=== PATIENT | female | born 1975 | race American Indian/Alaskan Native ===

== ENCOUNTER 2017-10-22 15:53 | Emergency (ER) | payer MEDICAID ==
[2017-10-22 16:06] VITALS: BP 140/70
[2017-10-22] MEDS ORDERED: DELTASONE PO ONE (19:48)
[2017-10-22] MEDS ORDERED: TORADOL IM ONE (19:48)
--- NOTE | 2017-10-22 20:25 | Emergency Department Report ---
ED Back Pain/Injury HPI - General Chief Complaint: Back Pain/Injury Stated Complaint: LOWER BACK PAIN Time Seen by Provider: 10/22/17 18:56 Source: patient Limitations: No Limitations - History of Present Illness Initial Comments: This is a 42-year-old female nontoxic, well nourished in appearance, no acute signs of distress presents to the ED with c/o of acute on chronic lower back pain. Patient stated that the past 2 days she was moving and developed this pain. Patient states has history of sciatica nerve pain which is similar symptoms as today. Patient states that pain radiates through to his left lower extremity. Patient denies any trauma. Denies any bladder or bowel instability. Patient denies any urinary symptoms. Denies any fever, chills, nausea, vomiting, headache, stiff neck, chest pain or shortness of breath. Patient denies any numbness or tingling. Denies any allergies. Denies significant past medical history. MD Complaint: back pain -: days(s) (2) Similar Symptoms Previously: Yes Place: home Radiation: left leg Severity: mild Severity scale (0 -10): 8 Quality: aching Improves With: immobilization, supine, sitting upright Worsens With: movement, walking Context: while lifting, bending Associated Symptoms: denies other symptoms. denies: confusion, weakness, chest pain, numbness, difficulty walking, cough, difficulty urinating, diaphoresis, incontinence, fever/chills, constipation, headaches, abdominal pain, loss of appetite, malaise, nausea/vomiting, rash, seizure, shortness of breath, syncope - Related Data Home Medications Medication Instructions Recorded Confirmed Last Taken Phenazopyridine [Pyridium] 200 mg PO TID 05/20/15 05/20/15 05/20/15 00:00 Sulfamethoxazole/Trimethoprim 1 each PO BID 05/20/15 05/20/15 05/20/15 00:00 [Bactrim DS TAB] Previous Rx's Medication Instructions Recorded Last Taken Type Amoxicillin [Trimox CAP] 500 mg PO Q8H #21 capsule 03/28/16 Unknown Rx Ibuprofen [Motrin] 600 mg PO Q8H PRN #30 tablet 03/28/16 Unknown Rx Neomy/Polymyx B/Hc (Otic) Soln 4 drops OTIC TID #1 bottle 03/28/16 Unknown Rx [Cortisporin (Otic) Soln] Cyclobenzaprine [Flexeril] 10 mg PO QHS PRN #10 tablet 10/22/17 Unknown Rx Ibuprofen [Motrin] 600 mg PO Q8H PRN #30 tablet 10/22/17 Unknown Rx Allergies Allergy/AdvReac Type Severity Reaction Status Date / Time No Known Allergies Allergy Verified 10/22/17 16:04 ED Review of Systems ROS: Stated complaint: LOWER BACK PAIN Other details as noted in HPI Constitutional: denies: chills, fever Eyes: denies: eye pain, eye discharge, vision change ENT: denies: ear pain, throat pain Respiratory: denies: cough, shortness of breath, wheezing Cardiovascular: denies: chest pain, palpitations Endocrine: no symptoms reported Gastrointestinal: denies: abdominal pain, nausea, diarrhea Genitourinary: denies: urgency, dysuria, discharge Musculoskeletal: back pain. denies: joint swelling, arthralgia Skin: denies: rash, lesions Neurological: denies: headache, weakness, paresthesias Psychiatric: denies: anxiety, depression Hematological/Lymphatic: denies: easy bleeding, easy bruising ED Past Medical Hx - Past Medical History Previous Medical History?: No - Surgical History Additional Surgical History: TUBAL LIGATION - Social History Smoking Status: Current Some Day Smoker Substance Use Type: None - Medications Home Medications: Home Medications Medication Instructions Recorded Confirmed Last Taken Type Phenazopyridine [Pyridium] 200 mg PO TID 05/20/15 05/20/15 05/20/15 00:00 History Sulfamethoxazole/Trimethoprim 1 each PO BID 05/20/15 05/20/15 05/20/15 00:00 History [Bactrim DS TAB] Amoxicillin [Trimox CAP] 500 mg PO Q8H #21 capsule 03/28/16 Unknown Rx Ibuprofen [Motrin] 600 mg PO Q8H PRN #30 tablet 03/28/16 Unknown Rx Neomy/Polymyx B/Hc (Otic) Soln 4 drops OTIC TID #1 bottle 03/28/16 Unknown Rx [Cortisporin (Otic) Soln] Cyclobenzaprine [Flexeril] 10 mg PO QHS PRN #10 tablet 10/22/17 Unknown Rx Ibuprofen [Motrin] 600 mg PO Q8H PRN #30 tablet 10/22/17 Unknown Rx ED Physical Exam - General Limitations: No Limitations General appearance: alert, in no apparent distress - Head Head exam: Present: atraumatic, normocephalic - Eye Eye exam: Present: normal appearance Pupils: Present: normal accommodation - ENT ENT exam: Present: normal exam, mucous membranes moist - Neck Neck exam: Present: normal inspection, full ROM. Absent: tenderness, meningismus, lymphadenopathy - Respiratory Respiratory exam: Present: normal lung sounds bilaterally. Absent: respiratory distress, wheezes, rales, rhonchi, stridor, chest wall tenderness, accessory muscle use, decreased breath sounds, prolonged expiratory - Cardiovascular Cardiovascular Exam: Present: regular rate, normal rhythm, normal heart sounds. Absent: bradycardia, tachycardia, irregular rhythm, systolic murmur, diastolic murmur, rubs, gallop - GI/Abdominal GI/Abdominal exam: Present: soft, normal bowel sounds. Absent: distended, tenderness, guarding, rebound, rigid, diminished bowel sounds - Rectal Rectal exam: Present: deferred - Extremities Exam Extremities exam: Present: normal inspection, full ROM, normal capillary refill. Absent: tenderness - Back Exam Back exam: Present: normal inspection, full ROM, paraspinal tenderness (lumbar paraspinal). Absent: tenderness, CVA tenderness (R), CVA tenderness (L), muscle spasm, vertebral tenderness, rash noted - Expanded Back Exam Expanded Back exam: Absent: saddle anesthesia Back exam: Negative Straight Leg Raising: Left, Right - Neurological Exam Neurological exam: Present: alert, oriented X3, normal gait - Psychiatric Psychiatric exam: Present: normal affect, normal mood - Skin Skin exam: Present: warm, dry, intact, normal color. Absent: rash ED Course Vital Signs 10/22/17 16:04 Temperature 99.2 F Pulse Rate 74 Respiratory 18 Rate Blood Pressure 140/70 O2 Sat by Pulse 100 Oximetry - Reevaluation(s) Reevaluation #1: 10/22/17 20:23 Patient is speaking in full sentences with no signs of distress noted. ED Medical Decision Making - Medical Decision Making This is a 42-year-old female that presents with low back strain. Patient is stable was examined by me. There is no spinal tenderness. There is no cauda equina syndrome during examination. No bladder or bowel instability. Patient received Toradol 30 mg IM and prednisone in the ED which preceded his symptoms has resolved and subsided. Patient is discharged with muscle relaxant and Motrin. Patient was instructed not to operate any machinery while taking muscle relaxant as they cause her drowsiness. Patient was referred to Follow- up with a primary care doctor in 3-5 days or if symptoms worsen and continue return to emergency room as soon as possible. At time of discharge, the patient does not seem toxic or ill in appearance. No acute signs of distress noted. Patient agrees to discharge treatment plan of care. No further questions noted by the patient. This chart is dictated with using [employer] Dictation Program Critical care attestation.: If time is entered above; I have spent that time in minutes in the direct care of this critically ill patient, excluding procedure time. ED Disposition Clinical Impression: Low back strain Qualifiers: Encounter type: initial encounter Qualified Code(s): S39.012A - Strain of muscle, fascia and tendon of lower back, initial encounter Disposition: TO HOME OR SELFCARE Is pt being admited?: No Does the pt Need Aspirin: No Condition: Stable Instructions: Low Back Strain (ED), Cyclobenzaprine (By mouth), Ibuprofen (By mouth) Additional Instructions: Follow-up with your primary care doctor in 3-5 days or if symptoms worsen such as bladder or bowel stability, chest pain, short of breath, numbness or tingling sensation in extremities, headache, dizziness, visual changes, nausea vomiting, or abdominal pain, return back to emergency room as was possible. Take ibuprofen and Flexeril as prescribed. Do not operate heavy machinery while taking Flexeril due to sedation Prescriptions: Cyclobenzaprine [Flexeril] 10 mg PO QHS PRN #10 tablet PRN Reason: Muscle Spasm Ibuprofen [Motrin] 600 mg PO Q8H PRN #30 tablet PRN Reason: Pain Referrals: PRIMARY CARE, [Primary Care Provider] - 3-5 Days ALEXANDRO ESCOTO MD [Staff Physician] - 3-5 Days [facility] [place] [Outside] - 3-5 Days [facility] [Outside] - 3-5 Days Forms: Work/School Release Form(ED)
== END 2017-10-22 20:30 | disposition home or self-care (01) ==
LOC: ED 15:53
DX: S39.012A Strain of muscle, fascia and tendon of lower back, initial encounter (principal); F17.200 Nicotine dependence, unspecified, uncomplicated; Z98.51 Tubal ligation status; Z79.899 Other long term (current) drug therapy; X50.1XXA Overexertion from prolonged static or awkward postures, initial encounter; Y93.89 Activity, other specified; Y99.8 Other external cause status; Y92.019 Unspecified place in single-family (private) house as the place of occurrence of the external cause
CPT/HCPCS: 96372; 99282; J1885; J7512

== ENCOUNTER 2018-10-08 18:10 | Emergency (ER) | payer MEDICAID ==
[2018-10-08 18:30] VITALS: BP 115/71
--- NOTE | 2018-10-08 18:33 | Emergency Department Report ---
ED Back Pain/Injury HPI - General Chief Complaint: Back Pain/Injury Stated Complaint: BACK/LEG PAIN Time Seen by Provider: 10/08/18 18:28 Source: patient Limitations: No Limitations - History of Present Illness Initial Comments: Pt is a 42 yo female who presents to the ED with c/o chronic lower back pain for a year. she states she has pain radiating down her legs. she states she works at a [employer] and gets stiff after sitting all day. pt denies any injury or fall. pt denies any paresthesias, numbness, or weakness, or bowel or bladder incontinence. denies any PMHx or allergies to medicaitons. - Related Data Home Medications Medication Instructions Recorded Confirmed Last Taken Phenazopyridine [Pyridium] 200 mg PO TID 05/20/15 05/20/15 05/20/15 00:00 Sulfamethoxazole/Trimethoprim 1 each PO BID 05/20/15 05/20/15 05/20/15 00:00 [Bactrim DS TAB] Previous Rx's Medication Instructions Recorded Last Taken Type Amoxicillin [Trimox CAP] 500 mg PO Q8H #21 capsule 03/28/16 Unknown Rx Ibuprofen [Motrin] 600 mg PO Q8H PRN #30 tablet 03/28/16 Unknown Rx Neomy/Polymyx B/Hc (Otic) Soln 4 drops OTIC TID #1 bottle 03/28/16 Unknown Rx [Cortisporin (Otic) Soln] Cyclobenzaprine [Flexeril] 10 mg PO QHS PRN #10 tablet 10/22/17 Unknown Rx Ibuprofen [Motrin] 600 mg PO Q8H PRN #30 tablet 10/22/17 Unknown Rx Cyclobenzaprine [Flexeril] 10 mg PO QHS PRN #12 tablet 10/08/18 Unknown Rx Naproxen [Naprosyn TAB] 375 mg PO BID PRN #20 tablet 10/08/18 Unknown Rx Allergies Allergy/AdvReac Type Severity Reaction Status Date / Time No Known Allergies Allergy Verified 10/08/18 18:17 ED Review of Systems ROS: Stated complaint: BACK/LEG PAIN Other details as noted in HPI Comment: All other systems reviewed and negative ED Past Medical Hx - Past Medical History Previous Medical History?: No - Surgical History Additional Surgical History: TUBAL LIGATION - Social History Smoking Status: Current Some Day Smoker Substance Use Type: None - Medications Home Medications: Home Medications Medication Instructions Recorded Confirmed Last Taken Type Phenazopyridine [Pyridium] 200 mg PO TID 05/20/15 05/20/15 05/20/15 00:00 History Sulfamethoxazole/Trimethoprim 1 each PO BID 05/20/15 05/20/15 05/20/15 00:00 History [Bactrim DS TAB] Amoxicillin [Trimox CAP] 500 mg PO Q8H #21 capsule 03/28/16 Unknown Rx Ibuprofen [Motrin] 600 mg PO Q8H PRN #30 tablet 03/28/16 Unknown Rx Neomy/Polymyx B/Hc (Otic) Soln 4 drops OTIC TID #1 bottle 03/28/16 Unknown Rx [Cortisporin (Otic) Soln] Cyclobenzaprine [Flexeril] 10 mg PO QHS PRN #10 tablet 10/22/17 Unknown Rx Ibuprofen [Motrin] 600 mg PO Q8H PRN #30 tablet 10/22/17 Unknown Rx Cyclobenzaprine [Flexeril] 10 mg PO QHS PRN #12 tablet 10/08/18 Unknown Rx Naproxen [Naprosyn TAB] 375 mg PO BID PRN #20 tablet 10/08/18 Unknown Rx ED Physical Exam - General Limitations: No Limitations General appearance: alert, in no apparent distress - Head Head exam: Present: atraumatic, normocephalic - Eye Eye exam: Present: normal appearance - ENT ENT exam: Present: mucous membranes moist - Neck Neck exam: Present: normal inspection, full ROM. Absent: tenderness - Respiratory Respiratory exam: Present: normal lung sounds bilaterally. Absent: respiratory distress, wheezes, rales, rhonchi, stridor, chest wall tenderness, accessory muscle use, decreased breath sounds, prolonged expiratory - Cardiovascular Cardiovascular Exam: Present: regular rate, normal rhythm, normal heart sounds - Back Exam Back exam: Present: normal inspection, full ROM, paraspinal tenderness (bilateral lumbar paraspinal muscular TTP, no midline C-spine, T-spine, or L- spine tenderness, no step offs, no deformities). Absent: vertebral tenderness - Neurological Exam Neurological exam: Present: alert, oriented X3, CN II-XII intact, normal gait. Absent: motor sensory deficit - Psychiatric Psychiatric exam: Present: normal affect, normal mood - Skin Skin exam: Present: warm, dry, intact ED Course Vital Signs 10/08/18 18:28 Temperature 98.7 F Pulse Rate 66 Respiratory 18 Rate Blood Pressure 115/71 O2 Sat by Pulse 100 Oximetry ED Medical Decision Making - Medical Decision Making Pt is a 42 yo female who presents to the ED with c/o chronic lower back pain for a year. she states she has pain radiating down her legs. she states she works at a [employer] and gets stiff after sitting all day. pt denies any injury or fall. pt denies any paresthesias, numbness, or weakness, or bowel or bladder incontinence. denies any PMHx or allergies to medicaitons. vitals are normal. on exam: bilateral lumbar paraspinal muscular TTP, no midline C-spine, T-spine, or L-spine tenderness, no step offs, no deformities, no focal neuro deficits. pt given prescription for anti-inflammatory and muscle relaxer. advised pt to please take medication as prescribed as needed. do not drive or operate heavy machinery while taking muscle relaxer. may use ice, heating pad, epsom salt bath. follow up with an orthopedic doctor in the next 2-3 days. return to the emergency room for any new or worsening symptoms. - Differential Diagnosis low back strain, arthritis, DDD, sciatica, herniated disc Critical care attestation.: If time is entered above; I have spent that time in minutes in the direct care of this critically ill patient, excluding procedure time. ED Disposition Clinical Impression: Low back pain Qualifiers: Chronicity: acute Back pain laterality: bilateral Sciatica presence: with sciatica Sciatica laterality: bilateral sciatica Qualified Code(s): M54.42 - Lumbago with sciatica, left side Disposition: -01 TO HOME OR SELFCARE Is pt being admited?: No Does the pt Need Aspirin: No Condition: Stable Instructions: Muscle Strain (ED), Sciatica (ED) Additional Instructions: please take medication as prescribed as needed. do not drive or operate heavy machinery while taking muscle relaxer. may use ice, heating pad, epsom salt bath. follow up with an orthopedic doctor in the next 2-3 days. return to the emergency room for any new or worsening symptoms. Prescriptions: Cyclobenzaprine [Flexeril] 10 mg PO QHS PRN #12 tablet PRN Reason: Muscle Spasm Naproxen [Naprosyn TAB] 375 mg PO BID PRN #20 tablet PRN Reason: pain Referrals: [facility] [Provider Group] - 2-3 Days VÍCTOR HOPKINS MD [Staff Physician] - 2-3 Days [facility] [Provider Group] - 2-3 Days Forms: Work/School Release Form(ED) Time of Disposition: 18:37 Print Language: BENGALI
== END 2018-10-08 18:55 | disposition home or self-care (01) ==
LOC: ED 18:10
DX: M54.5 Low back pain (principal); G89.29 Other chronic pain; F17.200 Nicotine dependence, unspecified, uncomplicated
CPT/HCPCS: 99282

== ENCOUNTER 2018-10-10 22:42 | Emergency (ER) | payer MEDICAID ==
[2018-10-10 23:41] LABS: Bacteria,Urine 3+ /HPF (Negative); Bilirubin,Urine NEG (Negative); Blood,Urine SM (Negative); Color,Urine Yellow (Yellow); Mucus,Urine FEW /HPF; Protein,Urine <15 mg/dL mg/dL (Negative)
--- NOTE | 2018-10-11 00:03 | Emergency Department Report ---
ED Female HPI - General Chief complaint: Urogenital-Female Stated complaint: PAINFUL URINATION Time Seen by Provider: 10/10/18 23:26 Source: patient Mode of arrival: Ambulatory Limitations: No Limitations - History of Present Illness Initial comments: Patient is a 42-year-old female who presents for urination with odor 2 months is no nausea no vomiting there as as of discharge white malodorous no fever chills MD Complaint: vaginal discharge, dysuria Onset/Timin -: month(s) Location: suprapubic Radiation: suprapubic Severity: moderate Quality: cramping Consistency: intermittent Improves with: none Worsens with: urination Are you Now?: No Last Menstrual Period: 08/18/18 (s/p tubla ligation) EDC: 05/25/19 Associated Symptoms: vaginal discharge, dysuria. denies: vaginal bleeding, abdominal pain, nausea/vomiting, fever/chills, hematuria, rash - Related Data Sexually active: Yes : 2 Para: 2 A: 0 Home Medications Medication Instructions Recorded Confirmed Last Taken Phenazopyridine [Pyridium] 200 mg PO TID 05/20/15 05/20/15 05/20/15 00:00 Sulfamethoxazole/Trimethoprim 1 each PO BID 05/20/15 05/20/15 05/20/15 00:00 [Bactrim DS TAB] Previous Rx's Medication Instructions Recorded Last Taken Type Amoxicillin [Trimox CAP] 500 mg PO Q8H #21 capsule 03/28/16 Unknown Rx Ibuprofen [Motrin] 600 mg PO Q8H PRN #30 tablet 03/28/16 Unknown Rx Neomy/Polymyx B/Hc (Otic) Soln 4 drops OTIC TID #1 bottle 03/28/16 Unknown Rx [Cortisporin (Otic) Soln] Cyclobenzaprine [Flexeril] 10 mg PO QHS PRN #10 tablet 10/22/17 Unknown Rx Ibuprofen [Motrin] 600 mg PO Q8H PRN #30 tablet 10/22/17 Unknown Rx Cyclobenzaprine [Flexeril] 10 mg PO QHS PRN #12 tablet 10/08/18 Unknown Rx Naproxen [Naprosyn TAB] 375 mg PO BID PRN #20 tablet 10/08/18 Unknown Rx metroNIDAZOLE [Flagyl] 500 mg PO BID 10 Days #20 tab 10/11/18 Unknown Rx Allergies Allergy/AdvReac Type Severity Reaction Status Date / Time No Known Allergies Allergy Verified 10/08/18 18:17 ED Review of Systems ROS: Stated complaint: PAINFUL URINATION Other details as noted in HPI Constitutional: denies: chills, fever Eyes: denies: eye pain, eye discharge, vision change ENT: denies: ear pain, throat pain Respiratory: denies: cough, shortness of breath, wheezing Cardiovascular: denies: chest pain, palpitations Endocrine: no symptoms reported Gastrointestinal: abdominal pain. denies: nausea, vomiting Genitourinary: urgency, dysuria, frequency, discharge. denies: hematuria, abnormal menses, dyspareunia Musculoskeletal: denies: back pain, joint swelling, arthralgia Skin: denies: rash, lesions Neurological: denies: headache, weakness, paresthesias Psychiatric: denies: anxiety, depression Hematological/Lymphatic: denies: easy bleeding, easy bruising ED Past Medical Hx - Past Medical History Previous Medical History?: No - Surgical History Past Surgical History?: Yes Additional Surgical History: TUBAL LIGATION - Social History Smoking Status: Current Every Day Smoker Substance Use Type: Alcohol - Medications Home Medications: Home Medications Medication Instructions Recorded Confirmed Last Taken Type Phenazopyridine [Pyridium] 200 mg PO TID 05/20/15 05/20/15 05/20/15 00:00 History Sulfamethoxazole/Trimethoprim 1 each PO BID 05/20/15 05/20/15 05/20/15 00:00 History [Bactrim DS TAB] Amoxicillin [Trimox CAP] 500 mg PO Q8H #21 capsule 03/28/16 Unknown Rx Ibuprofen [Motrin] 600 mg PO Q8H PRN #30 tablet 03/28/16 Unknown Rx Neomy/Polymyx B/Hc (Otic) Soln 4 drops OTIC TID #1 bottle 03/28/16 Unknown Rx [Cortisporin (Otic) Soln] Cyclobenzaprine [Flexeril] 10 mg PO QHS PRN #10 tablet 10/22/17 Unknown Rx Ibuprofen [Motrin] 600 mg PO Q8H PRN #30 tablet 10/22/17 Unknown Rx Cyclobenzaprine [Flexeril] 10 mg PO QHS PRN #12 tablet 10/08/18 Unknown Rx Naproxen [Naprosyn TAB] 375 mg PO BID PRN #20 tablet 10/08/18 Unknown Rx metroNIDAZOLE [Flagyl] 500 mg PO BID 10 Days #20 tab 10/11/18 Unknown Rx ED Physical Exam - General Limitations: No Limitations General appearance: alert, in no apparent distress - Head Head exam: Present: atraumatic, normocephalic - Eye Eye exam: Present: normal appearance, PERRL, EOMI Pupils: Present: normal accommodation - ENT ENT exam: Present: mucous membranes moist - Neck Neck exam: Present: normal inspection, full ROM. Absent: tenderness, l ymphadenopathy - Respiratory Respiratory exam: Present: normal lung sounds bilaterally. Absent: respiratory distress, wheezes, stridor, chest wall tenderness - Cardiovascular Cardiovascular Exam: Present: regular rate, normal rhythm, normal heart sounds. Absent: systolic murmur, diastolic murmur, rubs, gallop - GI/Abdominal GI/Abdominal exam: Present: soft, normal bowel sounds. Absent: distended, tenderness, bruit, hernia - Rectal Rectal exam: Present: deferred - External exam: Present: normal external exam Speculum exam: Present: erythema, vaginal discharge (white green malodorous ). Absent: cervical discharge, vaginal bleeding, foreign body, tissue, laceration Bi-manual exam: Absent: cervical motion tendernes - Extremities Exam Extremities exam: Present: normal inspection, full ROM, normal capillary refill. Absent: tenderness, pedal edema, joint swelling, calf tenderness - Back Exam Back exam: Present: normal inspection, full ROM. Absent: tenderness, CVA tenderness (R), CVA tenderness (L), muscle spasm, paraspinal tenderness, vertebral tenderness, rash noted - Neurological Exam Neurological exam: Present: alert, oriented X3, CN II-XII intact, normal gait - Psychiatric Psychiatric exam: Present: normal affect, normal mood - Skin Skin exam: Present: warm, dry, intact, normal color. Absent: rash ED Course Vital Signs 10/10/18 22:47 Temperature 99 F Pulse Rate 82 Respiratory 14 Rate Blood Pressure 110/62 O2 Sat by Pulse 100 Oximetry ED Medical Decision Making - Medical Decision Making plan tx'd for STI will dc with rx for flagyl, follow up with health department for HIV, HSV, and Syphlis screening pt verbalized agreement and understanding of same. Critical care attestation.: If time is entered above; I have spent that time in minutes in the direct care of this critically ill patient, excluding procedure time. ED Disposition Clinical Impression: STI (sexually transmitted infection) Disposition: TO HOME OR SELFCARE Is pt being admited?: No Does the pt Need Aspirin: No Condition: Stable Instructions: Sexually Transmitted Diseases in Adolescents (ED), Bacterial Vaginosis (ED) Prescriptions: metroNIDAZOLE [Flagyl] 500 mg PO BID 10 Days #20 tab Referrals: [facility] [Outside] - 3-5 Days Forms: Work/School Release Form(ED) Time of Disposition: :
[2018-10-11] MEDS ORDERED: XYLOCAINE 1% MPF 5 mL INFILTRATI ONE (00:55)
[2018-10-11] MEDS ORDERED: ROCEPHIN IM ONE (00:55)
[2018-10-11] MEDS ORDERED: ZITHROMAX PO ONE (00:55)
[2018-10-11 02:08] VITALS: BP 123/74
== END 2018-10-11 01:50 | disposition home or self-care (01) ==
LOC: ED 22:42
DX: A64 Unspecified sexually transmitted disease (principal); F17.200 Nicotine dependence, unspecified, uncomplicated; Z98.890 Other specified postprocedural states; Z98.51 Tubal ligation status; Z79.899 Other long term (current) drug therapy
CPT/HCPCS: 81001; 87210; 87591; 96372; 99284; J0696

== ENCOUNTER 2021-04-23 13:14 | Emergency (ER) | payer MEDICAID, OTHER ==
[2021-04-23] MEDS ORDERED: ACETAMINOPHEN 500 MG TAB PO ONE (14:57)
[2021-04-23 16:08] LABS: Bacteria,Urine 4+ /HPF (Negative); Bilirubin,Urine NEG (Negative); Blood,Urine MOD (Negative); Color,Urine Yellow (Yellow); Mucus,Urine FEW /HPF
[2021-04-23 16:11] LABS: HCG Qualitative,Urine Negative (Negative)
[2021-04-23] MEDS ORDERED: LIDOCAINE-MPF (1%) 10 MG/1 ML VIAL 5 ML INFILTRATI ONE (16:16)
[2021-04-23] MEDS ORDERED: KETOROLAC 10 MG TAB PO ONE (16:16)
[2021-04-23] MEDS ORDERED: levoFLOXacin 500 MG TAB PO ONE (16:20)
--- NOTE | 2021-04-23 16:36 | Emergency Department Report ---
ED Female HPI - General Chief complaint: Abdominal Pain Stated complaint: PAIN STOMACH/FEVER Time Seen by Provider: 04/23/21 14:43 Source: patient Mode of arrival: Ambulatory Limitations: No Limitations - History of Present Illness Initial comments: 45-year-old black female with no past medical history presents to the emergency department for evaluation of 3 to 4-day history of intermittent fever, urinary frequency, dysuria, and intermittent abdominal pain. She states that she does not have a thermometer at home but feels like she has been hot for the past several days. She also complains of headache. She states that she took Tylenol earlier this morning that improved her headache, abdominal pain, and fever but fever and headache have returned along with generalized body aches. She also states that she is concerned about possible . She denies vaginal discharge, nausea, vomiting, shortness of breath, and abdominal pain at this time. MD Complaint: dysuria -: Gradual, days(s) (3-4) Location: suprapubic Radiation: non-radiating Severity: severe Severity scale (0 -10): 8 Quality: aching Consistency: intermittent Worsens with: none Associated Symptoms: abdominal pain, fever/chills, headaches, dysuria. denies: vaginal discharge, vaginal bleeding, nausea/vomiting, loss of appetite, hematuria, rash, seizure, shortness of breath, syncope, weakness - Related Data Sexually active: Yes Home Medications Medication Instructions Recorded Confirmed Last Taken Phenazopyridine [Pyridium] 200 mg PO TID 05/20/15 05/20/15 05/20/15 00:00 Sulfamethoxazole/Trimethoprim 1 each PO BID 05/20/15 05/20/15 05/20/15 00:00 [Bactrim DS TAB] Previous Rx's Medication Instructions Recorded Last Taken Type Amoxicillin [Trimox CAP] 500 mg PO Q8H #21 capsule 03/28/16 Unknown Rx Ibuprofen [Motrin] 600 mg PO Q8H PRN #30 tablet 03/28/16 Unknown Rx Neomy/Polymyx B/Hc (Otic) Soln 4 drops OTIC TID #1 bottle 03/28/16 Unknown Rx [Cortisporin (Otic) Soln] Cyclobenzaprine [Flexeril] 10 mg PO QHS PRN #10 tablet 10/22/17 Unknown Rx Ibuprofen [Motrin] 600 mg PO Q8H PRN #30 tablet 10/22/17 Unknown Rx Cyclobenzaprine [Flexeril] 10 mg PO QHS PRN #12 tablet 10/08/18 Unknown Rx Naproxen [Naprosyn TAB] 375 mg PO BID PRN #20 tablet 10/08/18 Unknown Rx metroNIDAZOLE [Flagyl] 500 mg PO BID 10 Days #20 tab 10/11/18 Unknown Rx Ciprofloxacin HCl [Ciprofloxacin 500 mg PO BID #20 tab 04/23/21 Unknown Rx TAB] Ketorolac [Toradol] 10 mg PO Q6H PRN #12 tab 04/23/21 Unknown Rx Allergies Allergy/AdvReac Type Severity Reaction Status Date / Time No Known Allergies Allergy Verified 10/08/18 18:17 ED Review of Systems ROS: Stated complaint: PAIN STOMACH/FEVER Other details as noted in HPI Comment: All other systems reviewed and negative Constitutional: fever, malaise. denies: chills, diaphoresis, weakness Eyes: denies: eye pain ENT: denies: ear pain, throat pain Respiratory: denies: cough, shortness of breath Cardiovascular: denies: chest pain, palpitations, orthopnea Endocrine: no symptoms reported Gastrointestinal: abdominal pain. denies: nausea, vomiting, diarrhea, hematemesis, melena, hematochezia Genitourinary: dysuria, frequency. denies: urgency, hematuria, discharge, dyspareunia Musculoskeletal: denies: back pain Skin: denies: rash, lesions Neurological: headache. denies: weakness, numbness, paresthesias, abnormal gait Psychiatric: denies: anxiety Hematological/Lymphatic: denies: easy bleeding, easy bruising ED Past Medical Hx - Surgical History Additional Surgical History: TUBAL LIGATION - Social History Smoking Status: Current Every Day Smoker Substance Use Type: Alcohol - Medications Home Medications: Home Medications Medication Instructions Recorded Confirmed Last Taken Type Phenazopyridine [Pyridium] 200 mg PO TID 05/20/15 05/20/15 05/20/15 00:00 History Sulfamethoxazole/Trimethoprim 1 each PO BID 05/20/15 05/20/15 05/20/15 00:00 History [Bactrim DS TAB] Amoxicillin [Trimox CAP] 500 mg PO Q8H #21 capsule 03/28/16 Unknown Rx Ibuprofen [Motrin] 600 mg PO Q8H PRN #30 tablet 03/28/16 Unknown Rx Neomy/Polymyx B/Hc (Otic) Soln 4 drops OTIC TID #1 bottle 03/28/16 Unknown Rx [Cortisporin (Otic) Soln] Cyclobenzaprine [Flexeril] 10 mg PO QHS PRN #10 tablet 10/22/17 Unknown Rx Ibuprofen [Motrin] 600 mg PO Q8H PRN #30 tablet 10/22/17 Unknown Rx Cyclobenzaprine [Flexeril] 10 mg PO QHS PRN #12 tablet 10/08/18 Unknown Rx Naproxen [Naprosyn TAB] 375 mg PO BID PRN #20 tablet 10/08/18 Unknown Rx metroNIDAZOLE [Flagyl] 500 mg PO BID 10 Days #20 tab 10/11/18 Unknown Rx Ciprofloxacin HCl [Ciprofloxacin 500 mg PO BID #20 tab 04/23/21 Unknown Rx TAB] Ketorolac [Toradol] 10 mg PO Q6H PRN #12 tab 04/23/21 Unknown Rx ED Physical Exam - General Limitations: No Limitations General appearance: alert, in no apparent distress, other (Does not appear toxic) - Head Head exam: Present: atraumatic, normocephalic - Eye Eye exam: Present: normal appearance. Absent: conjunctival injection - Neck Neck exam: Present: normal inspection. Absent: tenderness, lymphadenopathy - Respiratory Respiratory exam: Present: normal lung sounds bilaterally. Absent: respiratory distress, wheezes, rales, rhonchi, stridor, chest wall tenderness - Cardiovascular Cardiovascular Exam: Present: regular rate, normal heart sounds - GI/Abdominal GI/Abdominal exam: Present: soft, normal bowel sounds. Absent: distended, tenderness, guarding, rebound, rigid - Extremities Exam Extremities exam: Present: normal inspection - Back Exam Back exam: Present: normal inspection, full ROM, CVA tenderness (R) (Minimal). Absent: tenderness, CVA tenderness (L) - Neurological Exam Neurological exam: Present: alert, oriented X3 - Psychiatric Psychiatric exam: Present: normal affect, normal mood - Skin Skin exam: Present: warm, dry, intact, normal color ED Course Vital Signs 04/23/21 04/23/21 14:30 17:24 Temperature 103.4 F H Pulse Rate 92 H 90 Respiratory 18 16 Rate Blood Pressure 106/60 [Left] Blood Pressure 114/64 [Right] O2 Sat by Pulse 100 100 Oximetry ED Medical Decision Making - Medical Decision Making 45-year-old black female with no past medical history presents to the emergency department for evaluation of 3 to 4-day history of intermittent fever, urinary frequency, dysuria, and intermittent abdominal pain. She states that she does not have a thermometer at home but feels like she has been hot for the past several days. She also complains of headache. She states that she took Tylenol earlier this morning that improved her headache, abdominal pain, and fever but fever and headache have returned along with generalized body aches. She also states that she is concerned about possible . She denies vaginal discharge, nausea, vomiting, shortness of breath, and abdominal pain at this time UA positive for nitrites, large amounts of leukocyte Estrace, and WBCs. Patient with minimal right CVA tenderness but denies abdominal pain. Low suspicion for renal or perinephritic abscess. Patient will be treated for acute pyelonephritis with 1 g Rocephin IM and 1 dose of Levaquin p.o. in the emergency department and sent home with 5-day course of Cipro 500 mg p.o. twice daily along with Toradol 10 mg as needed for pain. She is advised to take medications as prescribed and given strict return instructions if she develops worsening pain, worsening fever, persistent nausea vomiting. She verbalizes understanding of and agreement with plan of care. Critical care attestation.: If time is entered above; I have spent that time in minutes in the direct care of this critically ill patient, excluding procedure time. ED Disposition Clinical Impression: UTI (urinary tract infection) Qualifiers: Urinary tract infection type: acute pyelonephritis Qualified Code(s): N10 - Acute pyelonephritis Disposition: 01 HOME / SELF CARE / HOMELESS Is pt being admited?: No Does the pt Need Aspirin: No Condition: Stable Instructions: Pyelonephritis, Adult, [id number], Urinary Tract Infection, Adult, [id number], Abdominal Pain (ED) Additional Instructions: Take medications as prescribed. Return to the emergency department immediately if you develop worsening and severe abdominal pain, worsening back pain, fever, or persistent nausea vomiting. Drink plenty of noncaffeinated fluids. Follow- up with primary care provider Prescriptions: Ciprofloxacin HCl [Ciprofloxacin TAB] 500 mg PO BID #20 tab Ketorolac [Toradol] 10 mg PO Q6H PRN #12 tab PRN Reason: Pain Referrals: DOMO KUMAR MD [Referring] - 3-5 Days Time of Disposition: 16:51
[2021-04-23 17:27] VITALS: BP 106/60
== END 2021-04-23 17:45 | disposition home or self-care (01) ==
LOC: ED 13:14
DX: R10.9 Unspecified abdominal pain (principal); N39.0 Urinary tract infection, site not specified; F17.200 Nicotine dependence, unspecified, uncomplicated; F10.20 Alcohol dependence, uncomplicated
CPT/HCPCS: 81001; 81025; 87086; 96372; 99283; J0696; J3490